=== PATIENT | male | born 1980 | race Caucasian/White ===

== ENCOUNTER → 2024-10-11 15:20 | Outpatient (BNVA) | payer BC, SELFPAY | PROVIDERS: PCP Nurse Practitioner Family; Visit Provider Nurse Practitioner Family | DX: M50.30 Other cervical disc degeneration, unspecified cervical region (principal); M54.12 Radiculopathy, cervical region; M67.919 Unspecified disorder of synovium and tendon, unspecified shoulder; M67.912 Unspecified disorder of synovium and tendon, left shoulder | CPT/HCPCS: 72052; 73030 ==

== ENCOUNTER 2025-02-14 14:57 | Outpatient (CLI) | payer BC, SELFPAY ==
--- NOTE | 2025-02-14 15:15 | MR_ITS ---
WS: [id number] MRI LEFT SHOULDER HISTORY: Pain for 20 years. Increasing pain. COMPARISON: Radiograph 10/11/2024 TECHNIQUE: Multiplanar sequences of the shoulder joint are submitted. Small amount of increased T2 signal to the AC joint. Mild synovitis. No significant subacromial or subdeltoid bursal fluid. No subacromial impingement. Normal position of the biceps tendon in the bicipital groove. No os acromion. Normal appearance of the glenohumeral joint. No muscle atrophy or edema. Bursal surface fraying of the distal supraspinatus tendon. Moderate tendinopathy in the distal supraspinatus tendon. No tear identified. Increased signal in the interstitial portion of the distal subscapularis tendon from a small tear. No retraction of the tendon. Small amount of fluid adjacent to the distal infraspinatus tendon but no tear identified. Small amount of fluid in the rotator cuff interval. Mild increased signal within the coracohumeral ligament. No definite labral tear is identified. There is motion artifact on several sequences limiting evaluation of the labrum. MR/MR shoulder LT wo con* [id number] IMPRESSION: 1. Short segment distal interstitial tear in the subscapularis tendon. 2. Tendinopathy of the distal supraspinatus tendon with fraying of the bursal surface. 3. Fluid in the rotator cuff interval. Closely associated with the subscapular is tendon tear. 4. Biceps tendon in normal position in the bicipital groove. 5. Mild increased signal of the coracohumeral ligament.
== END 2025-02-14 14:58 | disposition home or self-care (01) ==
LOC: RAD 15:00
PROVIDERS: PCP Nurse Practitioner Family; Visit Provider Nurse Practitioner Family
DX: M67.912 Unspecified disorder of synovium and tendon, left shoulder (principal); M25.512 Pain in left shoulder; G89.29 Other chronic pain
CPT/HCPCS: 73221